=== PATIENT | male | born 1940 | race Hispanic/Latino ===

== ENCOUNTER 2018-02-23 15:23 | Outpatient (CLI) | payer MEDICARE ==
--- NOTE | 2018-02-23 21:11 | XRay Report ---
FINAL REPORT EXAM: XR CHEST ROUTINE 2V HISTORY: FALL TECHNIQUE: PA and lateral views of the chest Comparison: None FINDINGS: There are multiple displaced left-sided rib fractures of the posterior lateral aspect of the left 4th , 5th, 6th, 7th and 8th ribs. There appears to be small bilateral pleural fluid collections. There is no definite evidence of pneumothorax. There is pulmonary consolidation in both lung bases. Atelectasis versus infiltrates. The cardiac silhouette appears to be enlarged. There is atherosclerotic vascular calcification of the thoracic aorta. IMPRESSION: 1. Multiple displaced left-sided rib fractures with the appearance of small bilateral pleural fluid c ollections and pulmonary consolidation in both lung bases, atelectasis versus infiltrates. CT chest may be helpful for further evaluation.
== END 2018-02-23 15:24 | disposition home or self-care (01) ==
LOC: XRAY 15:23
PROVIDERS: ATTEND Internal Medicine
DX: S22.42XA Multiple fractures of ribs, left side, initial encounter for closed fracture (principal); X58.XXXA Exposure to other specified factors, initial encounter; Y93.89 Activity, other specified; Y92.89 Other specified places as the place of occurrence of the external cause; Y99.8 Other external cause status
CPT/HCPCS: 71046

== ENCOUNTER 2018-07-16 10:09 | Outpatient (CLI) | payer MEDICARE ==
[2018-07-16 10:41] LABS: Hematocrit 43.4 % (35.5-45.6); Hemoglobin 14.8 gm/dl (11.8-15.2); Mean Corpuscular HGB Conc 34 % (32-34); Mean Corpuscular Volume 104 fl (84-94); Platelet Count 117 K/mm3 (140-440); Red Blood Count 4.19 M/mm3 (3.65-5.03)
[2018-07-16 11:08] LABS: Chol/HDL Ratio 3.83 %
== END 2018-07-16 10:10 | disposition home or self-care (01) ==
LOC: LAB 10:09
PROVIDERS: ATTEND Internal Medicine
DX: E11.9 Type 2 diabetes mellitus without complications (principal); E78.5 Hyperlipidemia, unspecified
CPT/HCPCS: 36415; 80061; 83036; 85027

== ENCOUNTER 2018-12-03 10:34 | Outpatient (CLI) | payer MEDICARE ==
[2018-12-03 12:35] LABS: Chol/HDL Ratio 4.4 %
== END 2018-12-03 10:35 | disposition home or self-care (01) ==
LOC: LAB 10:34
PROVIDERS: ATTEND Internal Medicine
DX: E11.9 Type 2 diabetes mellitus without complications (principal); E78.5 Hyperlipidemia, unspecified
CPT/HCPCS: 36415; 80061; 83036

== ENCOUNTER 2019-08-26 13:24 | Outpatient (CLI) | payer MEDICARE ==
[2019-08-26] MEDS ORDERED: LIDOCAINE (4%) 40 MG/ML TOPICAL SOLN 50 ML BOTTLE TP ONE (15:00)
== END 2019-08-26 13:25 | disposition home or self-care (01) ==
LOC: WOUND 13:24
PROVIDERS: ATTEND Surgery
DX: L02.415 Cutaneous abscess of right lower limb (principal); E11.628 Type 2 diabetes mellitus with other skin complications; A49.02 Methicillin resistant Staphylococcus aureus infection, unspecified site; I10 Essential (primary) hypertension; F10.288 Alcohol dependence with other alcohol-induced disorder; Z87.891 Personal history of nicotine dependence
CPT/HCPCS: 99205; G0463

== ENCOUNTER 2019-09-03 09:13 | Outpatient (CLI) | payer MEDICARE ==
[2019-09-03] MEDS ORDERED: LIDOCAINE (4%) 40 MG/ML TOPICAL SOLN 50 ML BOTTLE TP ONE (10:00)
[2019-09-03] MEDS ORDERED: LIDOCAINE 1%/EPINEPHRINE 1:100,000 VIAL (20 ML) INFILTRATI ONE (10:00)
== END 2019-09-03 09:14 | disposition home or self-care (01) ==
LOC: WOUND 09:13
PROVIDERS: ATTEND Surgery
DX: L02.415 Cutaneous abscess of right lower limb (principal); E11.628 Type 2 diabetes mellitus with other skin complications; A49.02 Methicillin resistant Staphylococcus aureus infection, unspecified site; I10 Essential (primary) hypertension; F10.288 Alcohol dependence with other alcohol-induced disorder; Z87.891 Personal history of nicotine dependence
CPT/HCPCS: 10060; 97605

== ENCOUNTER 2019-09-12 14:33 | Outpatient (CLI) | payer MEDICARE | END 2019-09-12 14:34 | disposition home or self-care (01) | LOC: WOUND 14:33 | PROVIDERS: ATTEND Surgery | DX: L02.415 Cutaneous abscess of right lower limb (principal); E11.628 Type 2 diabetes mellitus with other skin complications; A49.02 Methicillin resistant Staphylococcus aureus infection, unspecified site; I10 Essential (primary) hypertension; F10.288 Alcohol dependence with other alcohol-induced disorder; Z87.891 Personal history of nicotine dependence | CPT/HCPCS: 82962; 97605 ==

== ENCOUNTER 2019-09-18 15:15 | Emergency (ER) | payer MEDICARE ==
--- NOTE | 2019-09-18 16:51 | Emergency Department Report ---
ED General Adult HPI - General Chief complaint: Weakness Stated complaint: WEAKNESS Time Seen by Provider: 09/18/19 16:02 Source: patient, EMS Mode of arrival: Stretcher Limitations: Physical Limitation - History of Present Illness Initial comments: Patient presents to the emergency department the chief complaint of malaise and giving out. Patient states this has been present for the last 4 to 5 weeks. He states he was recently in the hospital in the middle of August and after being discharged from the hospital he has had increased amount of falls. Patient states he fell twice today. Patient denies striking his head. Patient denies loss of consciousness. Patient denies chest pain, shortness breath, or headache. Patient also denies dizziness. He states today his home care nurse came to the home and he told her about his weakness in his legs and she asked for him to come to the hospital to be evaluated. -: Gradual Severity scale (0 -10): 0 Consistency: constant Improves with: none Worsens with: none Associated Symptoms: denies other symptoms Treatments Prior to Arrival: none - Related Data Previous Rx's Medication Instructions Recorded Last Taken Type Folic Acid 1 tab PO QDAY #30 tab 08/23/19 Unknown Rx Losartan [Cozaar] 25 mg PO QDAY #30 tablet 08/23/19 Unknown Rx Sulfamethoxazole/Trimethoprim 1 each PO BID #14 tablet 08/23/19 Unknown Rx [Bactrim DS TAB] Thiamine [Vitamin B-1] 100 mg PO QDAY #30 tablet 08/23/19 Unknown Rx Albuterol Mdi (or & Nicu Only) 2 puff IH Q4HR PRN #1 inhalation 09/18/19 Unknown Rx [ProAir HFA Inhaler] DOXYCYCLINE Hyclate [Vibramycin 100 mg PO Q12HR #14 capsule 09/18/19 Unknown Rx CAP] Allergies Allergy/AdvReac Type Severity Reaction Status Date / Time No Known Allergies Allergy Unverified 08/21/19 10:20 ED Review of Systems ROS: Stated complaint: WEAKNESS Other details as noted in HPI Comment: All other systems reviewed and negative Constitutional: weakness. denies: chills, fever Eyes: denies: eye pain, eye discharge, vision change ENT: denies: ear pain, throat pain Respiratory: denies: cough, shortness of breath, wheezing Cardiovascular: denies: chest pain, palpitations Endocrine: no symptoms reported Gastrointestinal: denies: abdominal pain, nausea, diarrhea Genitourinary: denies: urgency, dysuria Musculoskeletal: denies: back pain, joint swelling, arthralgia Skin: denies: rash, lesions Neurological: denies: headache, weakness, paresthesias Psychiatric: denies: anxiety, depression Hematological/Lymphatic: denies: easy bleeding, easy bruising ED Past Medical Hx - Past Medical History Hx Hypertension: Yes Hx Diabetes: Yes - Surgical History Past Surgical History?: No - Social History Smoking Status: Never Smoker - Medications Home Medications: Home Medications Medication Instructions Recorded Confirmed Last Taken Type Folic Acid 1 tab PO QDAY #30 tab 08/23/19 Unknown Rx Losartan [Cozaar] 25 mg PO QDAY #30 tablet 08/23/19 Unknown Rx Sulfamethoxazole/Trimethoprim 1 each PO BID #14 tablet 08/23/19 Unknown Rx [Bactrim DS TAB] Thiamine [Vitamin B-1] 100 mg PO QDAY #30 tablet 08/23/19 Unknown Rx Albuterol Mdi (or & Nicu Only) 2 puff IH Q4HR PRN #1 inhalation 09/18/19 Unknown Rx [ProAir HFA Inhaler] DOXYCYCLINE Hyclate [Vibramycin 100 mg PO Q12HR #14 capsule 09/18/19 Unknown Rx CAP] ED Physical Exam - General Limitations: Physical Limitation General appearance: alert, in no apparent distress - Head Head exam: Present: atraumatic, normocephalic - Eye Eye exam: Present: normal appearance, PERRL, EOMI - ENT ENT exam: Present: mucous membranes moist - Neck Neck exam: Present: normal inspection - Respiratory Respiratory exam: Present: normal lung sounds bilaterally. Absent: respiratory distress, wheezes - Cardiovascular Cardiovascular Exam: Present: regular rate, normal rhythm. Absent: systolic murmur, diastolic murmur, rubs, gallop - GI/Abdominal GI/Abdominal exam: Present: soft, normal bowel sounds. Absent: distended, tenderness - Rectal Rectal exam: Present: deferred - Extremities Exam Extremities exam: Present: normal inspection - Back Exam Back exam: Present: normal inspection - Neurological Exam Neurological exam: Present: alert, oriented X3 - Psychiatric Psychiatric exam: Present: normal affect, normal mood - Skin Skin exam: Present: warm, dry, normal color, other (Patient has a well-healing wound to the posterior aspect of his right calf that has packing and dressing applied there is no surrounding cellulitis or erythema). Absent: rash ED Course Vital Signs 09/18/19 09/18/19 09/18/19 15:48 15:54 16:00 Pulse Rate 56 L Respiratory 18 Rate Blood Pressure Blood Pressure 122/78 [Left] O2 Sat by Pulse 97 100 99 Oximetry 09/18/19 09/18/19 09/18/19 16:15 16:45 17:01 Pulse Rate 60 56 L 56 L Respiratory 16 12 15 Rate Blood Pressure 123/68 123/68 125/54 Blood Pressure [Left] O2 Sat by Pulse 99 100 100 Oximetry 09/18/19 09/18/19 09/18/19 18:04 18:15 19:45 Pulse Rate 56 L 57 L Respiratory 15 11 L Rate Blood Pressure 131/52 127/52 Blood Pressure 131/52 [Left] O2 Sat by Pulse 100 100 100 Oximetry ED Medical Decision Making - Lab Data Result diagrams: 09/18/19 16:53 09/18/19 18:43 Lab Results 09/18/19 09/18/19 09/18/19 Range/Units 16:53 16:53 16:53 WBC 5.5 (4.5-11.0) K/mm3 RBC 3.18 L (3.65-5.03) M/mm3 Hgb 11.5 L (11.8-15.2) gm/dl Hct 33.9 L (35.5-45.6) % MCV 107 H (84-94) fl MCH 36 H (28-32) pg MCHC 34 (32-34) % RDW 14.4 (13.2-15.2) % Plt Count 162 (140-440) K/mm3 [place] % (Auto) Melt Superintendant Add Manual Diff Complete Total Counted 100 Seg Neuts % (Manual) 51.0 (40.0-70.0) % Band Neutrophils % 0 % Lymphocytes % (Manual) 23.0 (13.4-35.0) % Reactive Lymphs % (Man) 0 % Monocytes % (Manual) 23.0 H (0.0-7.3) % Eosinophils % (Manual) 2.0 (0.0-4.3) % Basophils % (Manual) 1.0 (0.0-1.8) % Metamyelocytes % 0 % Myelocytes % 0 % Promyelocytes % 0 % Blast Cells % 0 % Nucleated RBC % Not Reportable Seg Neutrophils # Man 2.8 (1.8-7.7) K/mm3 Band Neutrophils # 0.0 K/mm3 Lymphocytes # (Manual) 1.3 (1.2-5.4) K/mm3 Abs React Lymphs (Man) 0.0 K/mm3 Monocytes # (Manual) 1.3 H (0.0-0.8) K/mm3 Eosinophils # (Manual) 0.1 (0.0-0.4) K/mm3 Basophils # (Manual) 0.1 (0.0-0.1) K/mm3 Metamyelocytes # 0.0 K/mm3 Myelocytes # 0.0 K/mm3 Promyelocytes # 0.0 K/mm3 Blast Cells # 0.0 K/mm3 WBC Morphology Not Reportable Hypersegmented Neuts Not Reportable Hyposegmented Neuts Not Reportable Hypogranular Neuts Not Reportable Smudge Cells Not Reportable Toxic Granulation Not Reportable Toxic Vacuolation Not Reportable Dohle Bodies Not Reportable Pelger-Huet Anomaly Not Reportable Xin Rods Not Reportable Platelet Estimate Not Reportable Clumped Platelets Not Reportable Plt Clumps, EDTA Not Reportable Large Platelets Not Reportable Giant Platelets Not Reportable Platelet Satelliting Not Reportable Plt Morphology Comment Not Reportable RBC Morphology Normal Dimorphic RBCs Not Reportable Polychromasia Not Reportable Hypochromasia Not Reportable Poikilocytosis Not Reportable Anisocytosis Not Reportable Microcytosis Not Reportable Macrocytosis Not Reportable Spherocytes Not Reportable Pappenheimer Bodies Not Reportable Sickle Cells Not Reportable Target Cells Not Reportable Tear Drop Cells Not Reportable Ovalocytes Not Reportable Helmet Cells Not Reportable [place] Bodies Not Reportable [place] Rings Not Reportable Julia Cells Not Reportable Bite Cells Not Reportable Crenated Cell Not Reportable Elliptocytes Not Reportable Acanthocytes (Spur) Not Reportable Rouleaux Not Reportable Hemoglobin C Crystals Not Reportable Schistocytes Not Reportable Malaria parasites Not Reportable [place] Bodies Not Reportable Hem Pathologist Commnt No PT 21.0 H (12.2-14.9) Sec. INR 1.77 H (0.87-1.13) APTT 37.0 H (24.2-36.6) Sec. Sodium 128 L (137-145) mmol/L Potassium 5.6 H (3.6-5.0) mmol/L Chloride 98.0 (98-107) mmol/L Carbon Dioxide 21 L (22-30) mmol/L Anion Gap 15 mmol/L BUN 16 (9-20) mg/dL Creatinine 1.4 H (0.8-1.3) mg/dL Estimated GFR 49 ml/min BUN/Creatinine Ratio 11 % Glucose 114 H (75-100) mg/dL Calcium 8.5 (8.4-10.2) mg/dL Total Bilirubin 2.60 H (0.1-1.2) mg/dL AST 83 H (5-40) units/L ALT 41 (7-56) units/L Alkaline Phosphatase 127 (35-129) units/L Troponin T (0.00-0.029) ng/mL NT-Pro-B Natriuret Pep (0-900) pg/mL Total Protein 6.5 (6.3-8.2) g/dL Albumin 2.2 L (3.9-5) g/dL Albumin/Globulin Ratio 0.5 % Urine Color (Yellow) Urine Turbidity (Clear) Urine pH (5.0-7.0) Ur Specific New Site (1.003-1.030) Urine Protein (Negative) mg/dL Urine Glucose (UA) (Negative) mg/dL Urine Ketones (Negative) mg/dL Urine Blood (Negative) Urine Nitrite (Negative) Urine Bilirubin (Negative) Urine Urobilinogen (<2.0) mg/dL Ur Leukocyte Esterase (Negative) Urine WBC (Auto) (0.0-6.0) /HPF Urine RBC (Auto) (0.0-6.0) /HPF U Epithel Cells (Auto) (0-13.0) /HPF Hyaline Casts /LPF Urine Mucus /HPF 09/18/19 09/18/19 09/18/19 Range/Units 16:53 18:43 18:43 WBC (4.5-11.0) K/mm3 RBC (3.65-5.03) M/mm3 Hgb (11.8-15.2) gm/dl Hct (35.5-45.6) % MCV (84-94) fl MCH (28-32) pg MCHC (32-34) % RDW (13.2-15.2) % Plt Count (140-440) K/mm3 [place] % (Auto) Add Manual Diff Total Counted Seg Neuts % (Manual) (40.0-70.0) % Band Neutrophils % % Lymphocytes % (Manual) (13.4-35.0) % Reactive Lymphs % (Man) % Monocytes % (Manual) (0.0-7.3) % Eosinophils % (Manual) (0.0-4.3) % Basophils % (Manual) (0.0-1.8) % Metamyelocytes % % Myelocytes % % Promyelocytes % % Blast Cells % % Nucleated RBC % Seg Neutrophils # Man (1.8-7.7) K/mm3 Band Neutrophils # K/mm3 Lymphocytes # (Manual) (1.2-5.4) K/mm3 Abs React Lymphs (Man) K/mm3 Monocytes # (Manual) (0.0-0.8) K/mm3 Eosinophils # (Manual) (0.0-0.4) K/mm3 Basophils # (Manual) (0.0-0.1) K/mm3 Metamyelocytes # K/mm3 Myelocytes # K/mm3 Promyelocytes # K/mm3 Blast Cells # K/mm3 WBC Morphology Hypersegmented Neuts Hyposegmented Neuts Hypogranular Neuts Smudge Cells Toxic Granulation Toxic Vacuolation Dohle Bodies Pelger-Huet Anomaly Xin Rods Platelet Estimate Clumped Platelets Plt Clumps, EDTA Large Platelets Giant Platelets Platelet Satelliting Plt Morphology Comment RBC Morphology Dimorphic RBCs Polychromasia Hypochromasia Poikilocytosis Anisocytosis Microcytosis Macrocytosis Spherocytes Pappenheimer Bodies Sickle Cells Target Cells Tear Drop Cells Ovalocytes Helmet Cells [place] Bodies [place] Rings Julia Cells Bite Cells Crenated Cell Elliptocytes Acanthocytes (Spur) Rouleaux Hemoglobin C Crystals Schistocytes Malaria parasites [place] Bodies Hem Pathologist Commnt PT (12.2-14.9) Sec. INR (0.87-1.13) APTT (24.2-36.6) Sec. Sodium (137-145) mmol/L Potassium 5.0 (3.6-5.0) mmol/L Chloride (98-107) mmol/L Carbon Dioxide (22-30) mmol/L Anion Gap mmol/L BUN (9-20) mg/dL Creatinine (0.8-1.3) mg/dL Estimated GFR ml/min BUN/Creatinine Ratio % Glucose (75-100) mg/dL Calcium (8.4-10.2) mg/dL Total Bilirubin (0.1-1.2) mg/dL AST (5-40) units/L ALT (7-56) units/L Alkaline Phosphatase (35-129) units/L Troponin T < 0.010 < 0.010 (0.00-0.029) ng/mL NT-Pro-B Natriuret Pep 1222 H (0-900) pg/mL Total Protein (6.3-8.2) g/dL Albumin (3.9-5) g/dL Albumin/Globulin Ratio % Urine Color (Yellow) Urine Turbidity (Clear) Urine pH (5.0-7.0) Ur Specific New Site (1.003-1.030) Urine Protein (Negative) mg/dL Urine Glucose (UA) (Negative) mg/dL Urine Ketones (Negative) mg/dL Urine Blood (Negative) Urine Nitrite (Negative) Urine Bilirubin (Negative) Urine Urobilinogen (<2.0) mg/dL Ur Leukocyte Esterase (Negative) Urine WBC (Auto) (0.0-6.0) /HPF Urine RBC (Auto) (0.0-6.0) /HPF U Epithel Cells (Auto) (0-13.0) /HPF Hyaline Casts /LPF Urine Mucus /HPF 08/12/20 Range/Units 20:36 WBC (4.5-11.0) K/mm3 RBC (3.65-5.03) M/mm3 Hgb (11.8-15.2) gm/dl Hct (35.5-45.6) % MCV (84-94) fl MCH (28-32) pg MCHC (32-34) % RDW (13.2-15.2) % Plt Count (140-440) K/mm3 [place] % (Auto) Add Manual Diff Total Counted Seg Neuts % (Manual) (40.0-70.0) % Band Neutrophils % % Lymphocytes % (Manual) (13.4-35.0) % Reactive Lymphs % (Man) % Monocytes % (Manual) (0.0-7.3) % Eosinophils % (Manual) (0.0-4.3) % Basophils % (Manual) (0.0-1.8) % Metamyelocytes % % Myelocytes % % Promyelocytes % % Blast Cells % % Nucleated RBC % Seg Neutrophils # Man (1.8-7.7) K/mm3 Band Neutrophils # K/mm3 Lymphocytes # (Manual) (1.2-5.4) K/mm3 Abs React Lymphs (Man) K/mm3 Monocytes # (Manual) (0.0-0.8) K/mm3 Eosinophils # (Manual) (0.0-0.4) K/mm3 Basophils # (Manual) (0.0-0.1) K/mm3 Metamyelocytes # K/mm3 Myelocytes # K/mm3 Promyelocytes # K/mm3 Blast Cells # K/mm3 WBC Morphology Hypersegmented Neuts Hyposegmented Neuts Hypogranular Neuts Smudge Cells Toxic Granulation Toxic Vacuolation Dohle Bodies Pelger-Huet Anomaly Xin Rods Platelet Estimate Clumped Platelets Plt Clumps, EDTA Large Platelets Giant Platelets Platelet Satelliting Plt Morphology Comment RBC Morphology Dimorphic RBCs Polychromasia Hypochromasia Poikilocytosis Anisocytosis Microcytosis Macrocytosis Spherocytes Pappenheimer Bodies Sickle Cells Target Cells Tear Drop Cells Ovalocytes Helmet Cells [place] Bodies [place] Rings Julia Cells Bite Cells Crenated Cell Elliptocytes Acanthocytes (Spur) Rouleaux Hemoglobin C Crystals Schistocytes Malaria parasites [place] Bodies Hem Pathologist Commnt PT (12.2-14.9) Sec. INR (0.87-1.13) APTT (24.2-36.6) Sec. Sodium (137-145) mmol/L Potassium (3.6-5.0) mmol/L Chloride (98-107) mmol/L Carbon Dioxide (22-30) mmol/L Anion Gap mmol/L BUN (9-20) mg/dL Creatinine (0.8-1.3) mg/dL Estimated GFR ml/min BUN/Creatinine Ratio % Glucose (75-100) mg/dL Calcium (8.4-10.2) mg/dL Total Bilirubin (0.1-1.2) mg/dL AST (5-40) units/L ALT (7-56) units/L Alkaline Phosphatase (35-129) units/L Troponin T (0.00-0.029) ng/mL NT-Pro-B Natriuret Pep (0-900) pg/mL Total Protein (6.3-8.2) g/dL Albumin (3.9-5) g/dL Albumin/Globulin Ratio % Urine Color [place] (Yellow) Urine Turbidity Clear (Clear) Urine pH 5.0 (5.0-7.0) Ur Specific [place] 1.017 (1.003-1.030) Urine Protein <15 mg/dl (Negative) mg/dL Urine Glucose (UA) Neg (Negative) mg/dL Urine Ketones Neg (Negative) mg/dL Urine Blood Neg (Negative) Urine Nitrite Neg (Negative) Urine Bilirubin Neg (Negative) Urine Urobilinogen 4.0 (<2.0) mg/dL Ur Leukocyte Esterase Neg (Negative) Urine WBC (Auto) 6.0 (0.0-6.0) /HPF Urine RBC (Auto) 2.0 (0.0-6.0) /HPF U Epithel Cells (Auto) 1.0 (0-13.0) /HPF Hyaline Casts 1 /LPF Urine Mucus Few /HPF - EKG Data -: EKG Interpreted by De EKG shows normal: sinus rhythm Rate: bradycardia (58 bpm) - Radiology Data Radiology results: report reviewed - Medical Decision Making Discussed the results with patient Critical care attestation.: If time is entered above; I have spent that time in minutes in the direct care of this critically ill patient, excluding procedure time. ED Disposition Clinical Impression: Fatigue, Weakness, Atelectasis of both lungs Disposition: DC- TO HOME OR SELFCARE Is pt being admited?: No Does the pt Need Aspirin: No Condition: Stable Instructions: Weakness (ED), Fatigue (ED) Additional Instructions: return if worse Prescriptions: Albuterol Mdi (or & Nicu Only) [ProAir HFA Inhaler] 2 puff IH Q4HR PRN #1 inhalation PRN Reason: Shortness Of Breath DOXYCYCLINE Hyclate [Vibramycin CAP] 100 mg PO Q12HR #14 capsule Time of Disposition: 22:02
--- NOTE | 2019-09-18 17:17 | XRay Report ---
CHEST 1 VIEW INDICATION: weakness. COMPARISON: 02/23/2018. FINDINGS: Support devices: None. Heart: Within normal limits. Lungs/Pleura: Diminished lung volumes with mild basilar atelectasis. No suspicious infiltrate. Additional findings: None. IMPRESSION: Diminished lung volumes with mild basilar atelectasis. Signer Name: Tor Multani MD Signed: 09/18/2019 5:12 PM Workstation Name: [id number]
[2019-09-18 17:34] LABS: Albumin 2.2 g/dL (3.9-5); Calcium 8.5 mg/dL (8.4-10.2)
[2019-09-18 17:36] LABS: Hematocrit 33.9 % (35.5-45.6); Hemoglobin 11.5 gm/dl (11.8-15.2); Mean Corpuscular HGB Conc 34 % (32-34); Mean Corpuscular Volume 107 fl (84-94); Platelet Count 162 K/mm3 (140-440); Red Blood Count 3.18 M/mm3 (3.65-5.03); Red Cell Distribution Width 14.4 % (13.2-15.2)
--- NOTE | 2019-09-18 17:37 | Cat Scan Report ---
CT BRAIN: 09/18/2019 INDICATION / CLINICAL INFORMATION: weakness. COMPARISON: None available. FINDINGS: BRAIN/INTRACRANIAL STRUCTURES: Unenhanced CT images of the brain demonstrate no evidence of acute int racranial abnormality. Ventricles and sulci are prominent in size, consistent with pronounced diffuse cerebral atrophy. There is no evidence of acute ischemic injury, hemorrhage, or mass. There are no abnormal extra-axial fluid collections. EXTRACRANIAL STRUCTURES: Unremarkable. IMPRESSION: No acute abnormality. All CT scans at this location are performed using dose reduction to ALARA by means of automated expos ure control. Signer Name: Leonard Courtney MD Signed: 09/18/2019 5:33 PM Workstation Name: [id number]
[2019-09-18 18:17] LABS: INR 1.77 (0.87-1.13)
[2019-09-18 18:32] LABS: RBC Morphology Normal; Total Cells Counted 100
[2019-09-18 21:51] LABS: Bilirubin,Urine NEG (Negative); Blood,Urine NEG (Negative); Color,Urine Amber (Yellow); Hyaline Casts,Urine 1 /LPF; Mucus,Urine FEW /HPF; Protein,Urine <15 mg/dL mg/dL (Negative)
[2019-09-18 22:20] VITALS: BP 130/62
== END 2019-09-18 22:36 | disposition home or self-care (01) ==
LOC: ED 15:15
DX: R53.83 Other fatigue (principal); R53.1 Weakness; J98.11 Atelectasis; I10 Essential (primary) hypertension; E11.9 Type 2 diabetes mellitus without complications; Z79.899 Other long term (current) drug therapy
CPT/HCPCS: 36415; 70450; 71045; 80053; 81001; 83880; 84132; 84484; 85007; 85025; 85610; 85730; 93005

== ENCOUNTER 2019-09-30 14:41 | Outpatient (CLI) | payer MEDICARE ==
[2019-09-30] MEDS ORDERED: LIDOCAINE (4%) 40 MG/ML TOPICAL SOLN 50 ML BOTTLE TP ONE (14:49)
== END 2019-09-30 14:42 | disposition home or self-care (01) ==
LOC: WOUND 14:41
PROVIDERS: ATTEND Surgery
DX: L02.415 Cutaneous abscess of right lower limb (principal); E11.628 Type 2 diabetes mellitus with other skin complications; A49.02 Methicillin resistant Staphylococcus aureus infection, unspecified site; I10 Essential (primary) hypertension; F10.288 Alcohol dependence with other alcohol-induced disorder; Z87.891 Personal history of nicotine dependence
CPT/HCPCS: 82962; 97605

== ENCOUNTER 2019-10-09 14:35 | Outpatient (CLI) | payer MEDICARE | END 2019-10-09 14:36 | disposition home or self-care (01) | LOC: WOUND 14:35 | PROVIDERS: ATTEND Surgery | DX: L02.415 Cutaneous abscess of right lower limb (principal); E11.628 Type 2 diabetes mellitus with other skin complications; A49.02 Methicillin resistant Staphylococcus aureus infection, unspecified site; I10 Essential (primary) hypertension; F10.288 Alcohol dependence with other alcohol-induced disorder; Z87.891 Personal history of nicotine dependence | CPT/HCPCS: 97605 ==

== ENCOUNTER 2019-10-21 13:34 | Outpatient (CLI) | payer MEDICARE ==
[2019-10-21] MEDS ORDERED: LIDOCAINE (4%) 40 MG/ML TOPICAL SOLN 50 ML BOTTLE TP ONE (14:04)
== END 2019-10-21 13:35 | disposition home or self-care (01) ==
LOC: WOUND 13:34
PROVIDERS: ATTEND Surgery
DX: L02.415 Cutaneous abscess of right lower limb (principal); E11.628 Type 2 diabetes mellitus with other skin complications; A49.02 Methicillin resistant Staphylococcus aureus infection, unspecified site; I10 Essential (primary) hypertension; F10.288 Alcohol dependence with other alcohol-induced disorder; Z87.891 Personal history of nicotine dependence
CPT/HCPCS: 82962; 97605

== ENCOUNTER 2019-10-28 14:32 | Outpatient (CLI) | payer MEDICARE ==
[2019-10-28] MEDS ORDERED: LIDOCAINE (4%) 40 MG/ML TOPICAL SOLN 50 ML BOTTLE TP ONE (15:35)
== END 2019-10-28 14:33 | disposition home or self-care (01) ==
LOC: WOUND 14:32
PROVIDERS: ATTEND Surgery
DX: L02.415 Cutaneous abscess of right lower limb (principal); E11.628 Type 2 diabetes mellitus with other skin complications; A49.02 Methicillin resistant Staphylococcus aureus infection, unspecified site; I10 Essential (primary) hypertension; F10.288 Alcohol dependence with other alcohol-induced disorder; S81.801D Unspecified open wound, right lower leg, subsequent encounter; Z87.891 Personal history of nicotine dependence
CPT/HCPCS: 82962; 97605

== ENCOUNTER 2019-11-04 14:34 | Outpatient (CLI) | payer MEDICARE ==
[2019-11-04] MEDS ORDERED: LIDOCAINE (4%) 40 MG/ML TOPICAL SOLN 50 ML BOTTLE TP ONE (14:42)
== END 2019-11-04 14:35 | disposition home or self-care (01) ==
LOC: WOUND 14:34
PROVIDERS: ATTEND Surgery
DX: L02.415 Cutaneous abscess of right lower limb (principal); L97.212 Non-pressure chronic ulcer of right calf with fat layer exposed; E11.628 Type 2 diabetes mellitus with other skin complications; A49.02 Methicillin resistant Staphylococcus aureus infection, unspecified site; I10 Essential (primary) hypertension; S81.801D Unspecified open wound, right lower leg, subsequent encounter; F10.288 Alcohol dependence with other alcohol-induced disorder; Z87.891 Personal history of nicotine dependence; L02.412 Cutaneous abscess of left axilla
CPT/HCPCS: 82962; 97605

== ENCOUNTER 2019-11-11 14:55 | Outpatient (CLI) | payer MEDICARE ==
[2019-11-11] MEDS ORDERED: LIDOCAINE (4%) 40 MG/ML TOPICAL SOLN 50 ML BOTTLE TP ONE (15:23)
== END 2019-11-11 14:56 | disposition home or self-care (01) ==
LOC: WOUND 14:55
PROVIDERS: ATTEND Surgery
DX: L02.415 Cutaneous abscess of right lower limb (principal); E11.628 Type 2 diabetes mellitus with other skin complications; A49.02 Methicillin resistant Staphylococcus aureus infection, unspecified site; I10 Essential (primary) hypertension; F10.288 Alcohol dependence with other alcohol-induced disorder; Z87.891 Personal history of nicotine dependence
CPT/HCPCS: 97605